=== PATIENT | male | born 1995 | race Two or more races ===

== ENCOUNTER 2017-11-25 17:19 | Emergency (ER) | payer OTHER ==
--- NOTE | 2017-11-25 17:15 | EDPHY ---
H & P Time Seen by Provider: 11/25/17 17:19 Constitutional: Initial Vital Signs Temperature (C) 37.2 C 11/25/17 17:19 Heart Rate 89 11/25/17 17:19 Respiratory Rate 16 11/25/17 17:19 Blood Pressure 123/74 H 11/25/17 17:19 O2 Sat (%) 94 11/25/17 17:19 O2 Delivery Mode Room Air Allergies/Adverse Reactions: No Known Allergies Allergy (Unverified 11/25/17 17:21) Home Medications: Medication Instructions Recorded Amoxicillin/Clavulanate Pot 875 mg PO BID #20 tab 11/25/17 [Augmentin 875 MG TAB (RX)] Medical Decision Making ED Course/Re-evaluation: CHIEF COMPLAINT: Dog bite to arm HISTORY OF PRESENT ILLNESS: The patient is a 22 y/o male complaining of a dog bite that occurred [place] long boarding [place] bike path this afternoon. He felt the dog bite his left upper arm, but did not fall, strike his head, or suffer other injuries. No weakness, numbness, or significant bleeding. He is normally healthy. REVIEW OF SYSTEMS: A 10 point review of systems was performed and is negative with the exception of the elements mentioned in the history of present illness. PHYSICAL EXAM: HR, BP, O2 Sat, RR. Temp noted General Appearance: Alert, well hydrated, appropriate, and non-toxic appearing. Head: Atraumatic without scalp tenderness or obvious injury Eyes: Pupils equal, round, reactive to light and accommodation, EOMI, no trauma , no injection. Nose: Atraumatic, no rhinorrhea, clear. Throat: Mucus membranes moist. Neck: Supple Respiratory: No retractions, no distress, no wheezes, and no accessory muscle use. Lungs are clear to auscultation bilaterally. Cardiovascular: Regular rate and rhythm, no murmurs, rubs, or gallops. Left radial pulse intact. Good capillary refill all extremities. Gastrointestinal: Abdomen is soft, nontender, non-distended, no masses, no rebound, no guarding, no peritoneal signs. Musculoskeletal: Three left upper arm abrasions along triceps, potential puncture wound on lateral aspect of upper arm that is tender to palpation. Normal active ROM of all extremities, atraumatic. Neurological: Alert, appropriate, and interactive. The patient has non-focal cranial nerves, motor, sensory, and cerebellar exam. Skin: No rashes, good turgor, no nodules on palpation. Past medical history: Denies Past surgical history: Denies Family history: Noncontributory Social history: Not a student. Lives in [place]. DIFFERENTIAL DIAGNOSIS: The differential diagnosis for the patient's symptoms included but was not limited to dog bite, puncture wound, abrasion, laceration. MEDICAL DECISION MAKING: This is a healthy 22 y/o male who presents with minor abrasions and possible puncture wound to his left upper arm secondary to dog bite. He is neurovascularly intact. Suture repair not indicated in this wound due to risk of infection. Patient will be given script for Augmentin and standard wound care and follow up instructions. Return precautions discussed. He is comfortable with this plan. - Data Points Medications Given: Discontinued Medications Diphtheria/Tetanus/Acell Pertussis (Boostrix) 0.5 ml IM .ONCE ONE Stop: 11/25/17 17:25 Last Admin: 11/25/17 17:47 Dose: 0.5 ml Departure - Departure Disposition: Home, Routine, Self-Care Clinical Impression: Dog bite of arm Condition: Good Instructions: Amoxicillin/Clavulanate Potassium (By mouth), Animal Bite (ED) Additional Instructions: 1. Take Augmentin as prescribed. Be sure to complete the entire prescription. 2. Use Tylenol or ibuprofen as directed on the packaging as needed for pain and swelling over the next few days. 3. Follow up with primary care provider or return here for unimproved symptoms over the next few days or sooner if you develop fever, severe pain, dramatic increase in redness, swelling, or pus, or other worsening of condition. Referrals: Gabrielle Jurado MD [Medical Doctor] - As per Instructions [facility],. [Clinic] - As per Instructions Prescriptions: Amoxicillin/Clavulanate Pot [Augmentin 875 MG TAB (RX)] 875 mg PO BID #20 tab Report Scribed for: Jomar Lopez Report Scribed by: Celia Aparicio Date of Report: 11/25/17 Time of Report: 17:44
[2017-11-25 17:23] VITALS: BP 123/74; PULSE 89; RESP 16; TEMP 99; O2SAT 94
[2017-11-25] MEDS ORDERED: TDAP ADULT 0.5 ML INJ (BOOSTRIX) IM ONE (17:24)
== END 2017-11-25 18:06 | disposition home or self-care (01) ==
DX: S41.152A Open bite of left upper arm, initial encounter (principal); Z23 Encounter for immunization; W54.0XXA Bitten by dog, initial encounter; Y92.482 Bike path as the place of occurrence of the external cause; Y99.8 Other external cause status; Y93.51 Activity, roller skating (inline) and skateboarding